=== PATIENT | male | born 1990 | race Caucasian/White ===

== ENCOUNTER 2017-02-04 02:01 | Emergency (ER) | payer BC, OTHER ==
[2017-02-04] MEDS ORDERED: MULTIVITAMINS1 EAC3 (02:09)
[2017-02-04] MEDS ORDERED: CALCIUM500 M1 (02:09)
== END 2017-02-04 02:46 | disposition home or self-care (01) ==
LOC: SED 02:01
DX: K08.89 Other specified disorders of teeth and supporting structures (principal); R51 Headache; Z88.0 Allergy status to penicillin
CPT/HCPCS: 99282